=== PATIENT | female | born 1985 | race Caucasian/White ===

== ENCOUNTER 2022-11-03 12:30 | Outpatient (REF) | payer OTHER, SELFPAY ==
[2022-11-03 15:49] LABS: HCT 43.9 % (36.0-46.0); HGB 14.6 g/dL (11.2-15.7); MCH 31.1 pg (27.0-33.0); MCHC 33.3 % (32.0-36.0); MCV 94 fL (80-95); MPV 11.3 fL (8.0-11.0); Platelet Count 241 10^3/uL (130-400); RBC 4.69 10^6/uL (3.93-5.22); RDW 12.4 % (11.7-14.6); RDW-SD 42.9 fL; WBC 7.32 10^3/uL (4.4-10.8)
[2022-11-03 16:16] LABS: ALT 14 U/L (14-59); AST 16 U/L (15-37); Albumin 3.6 g/dL (3.4-5.0); Alkaline Phosphatase 61 U/L (46-116); Anion Gap 9.5 mmol/L (3-11); BUN 7 mg/dL (7-18); Bilirubin, Total 0.4 mg/dL (0.2-1.0); CO2 27.5 mmol/L (21.0-32.0); CREATININE 0.8 mg/dL (0.55-1.02); Calcium 9.1 mg/dL (8.5-10.1); Calculated LDL 118 mg/dL (<100); Chloride 103 mmol/L (98-107); Cholesterol 191 mg/dL (<200); Estimated GFR 96.66 (mL/min/1.73m2); Glucose 81 mg/dL (74-106); HDL Cholesterol 54 mg/dL (40-60); Potassium 3.8 mmol/L (3.5-5.1); Sodium 140 mmol/L (136-145); TSH 1.28 uIU/mL (0.36-3.74); Total Protein 7.1 g/dL (6.4-8.2); Triglyceride 98 mg/dL (<150)
== END 2022-11-03 12:31 | disposition home or self-care (01) ==
LOC: NCHCN 12:30
PROVIDERS: PCP Family Medicine; Visit Provider Nurse Practitioner Family
DX: E66.01 Morbid (severe) obesity due to excess calories (principal); Z13.220 Encounter for screening for lipoid disorders; Z13.1 Encounter for screening for diabetes mellitus; Z13.29 Encounter for screening for other suspected endocrine disorder; Z00.00 Encounter for general adult medical examination without abnormal findings
CPT/HCPCS: 80053; 80061; 85027; 83036; 84443

== ENCOUNTER 2022-12-16 11:45 | Outpatient (REF) | payer OTHER, SELFPAY ==
--- NOTE | 2022-12-16 10:50 | PAPFT_PTH ---
PATIENT: Jayce Villalpando [facility] U[facility][id number] AGE/SX: 37/F ROOM: RE12/16/[address]: Kelly Mensah : 1985 BED: DIS: 12/16/2022 SPEC #: [id number] RECD: 12/16/22 17:37 STATUS: AMILCAR REQ #: [id number] VON: 12/16/22 10:[address]: Kelly Mensah DEPT: PENDING SALE TO [facility] Cytology RECD BY: Tasneem Pradhan ENTERED: 12/16/22 17:38 SP TYPE: PAPFT OTHR DR: Tiffanie Huffman Tissues: 1 - CX/ENDOCX FOR PAP SMEARS Procedures: PAP THIN PREP/[facility] Screening HPV DNA PROBE Comments: [id number] (CHLAMYDIA/GC)
[2022-12-17 14:48] LABS: Chlamydia Result Negative (Negative); GC Result Negative (Negative)
== END 2022-12-16 11:46 | disposition home or self-care (01) ==
LOC: NCHCN 11:45
PROVIDERS: PCP Family Medicine; Visit Provider Family Medicine
DX: Z11.3 Encounter for screening for infections with a predominantly sexual mode of transmission (principal); Z12.4 Encounter for screening for malignant neoplasm of cervix; Z11.51 Encounter for screening for human papillomavirus (HPV)
CPT/HCPCS: 87491; 87591; 88142; 87624

== ENCOUNTER 2023-08-27 10:42 | Outpatient (REF) | payer MEDICAID, SELFPAY ==
[2023-08-26 22:15] LABS: ALT 17 U/L (14-59); AST 17 U/L (15-37); Albumin 3.2 g/dL (3.4-5.0); Alkaline Phosphatase 105 U/L (46-116); Anion Gap 9.5 mmol/L (3-11); BUN 11 mg/dL (7-18); Bilirubin, Total 0.3 mg/dL (0.2-1.0); CO2 25.5 mmol/L (21.0-32.0); CREATININE 0.7 mg/dL (0.55-1.02); Calcium 9.2 mg/dL (8.5-10.1); Chloride 103 mmol/L (98-107); Estimated GFR 112.75 (mL/min/1.73m2); Folate 7.1 ng/mL (8.6-20.0); Glucose 85 mg/dL (74-106); Magnesium 1.8 mg/dL (1.8-2.4); Potassium 3.9 mmol/L (3.5-5.1); Sodium 138 mmol/L (136-145); Total Protein 6.9 g/dL (6.4-8.2); Vitamin B12 277 pg/mL (193-986)
== END 2023-08-27 10:43 | disposition home or self-care (01) ==
LOC: NCHCN 10:42
PROVIDERS: PCP Family Medicine; Visit Provider Family Medicine
DX: R25.2 Cramp and spasm (principal); E55.9 Vitamin D deficiency, unspecified
CPT/HCPCS: 80053; 82306; 82607; 82746; 83735